=== PATIENT | female | born 1965 | race Caucasian/White ===

== ENCOUNTER 2021-03-10 12:18 | Emergency (ER) | payer OTHER, SELFPAY ==
[~2021-03-10] VITALS: Ht 157.5 cm; Wt 59.9 kg
--- NOTE | 2021-03-10 13:25 | NUR ---
placed in bed 7
[2021-03-10 13:26] VITALS: BP_SYST 80
--- NOTE | 2021-03-10 13:45 | NUR ---
Pt. came in with c/o dizziness, weakness, sorethroat and chestpain, states had covid earlier this month and has had ongoing throat and chest pain but dizziness has happened on and off for years and cause ussually is from low bloodpressure, BP at this time is 107/71 P 76, EKG done and labs started
--- NOTE | 2021-03-10 14:17 | NUR ---
WARREN Jessica at bedside examining patient.
[2021-03-10] MEDS ORDERED: NACL 0.9% 1,000 ML IV ONE (14:30)
[2021-03-10 14:43] LABS: CALCIUM 8.4 mg/dL (8.4-11.0); CREATININE 1.1 mg/dL (0.55-1.30); POTASSIUM 3.5 mmol/L (3.5-5.1)
[2021-03-10 14:51] LABS: ALBUMIN 2.5 g/dL (3.4-4.8); TOTAL BILIRUBIN 0.2 mg/dL (0.0-1.0)
[2021-03-10 14:52] LABS: BASOPHILS % (AUTO) 0.3 % (0.0-2.0); EOSINOPHILS % (AUTO) 0.5 % (0.0-4.0); HEMATOCRIT 28.1 % (36-48); HEMOGLOBIN 9.6 g/dL (12.0-16.0); LYMPHOCYTES # (AUTO) 2.3 K/uL (1.0-5.5); MEAN CORPUSCULAR HEMOGLOBIN 29 pg (27-31); MEAN CORPUSCULAR HGB CONC 34 % (32-36); MEAN CORPUSCULAR VOLUME 84 fL (79.0-98.0); MONOCYTES # (AUTO) 0.5 K/uL (0.0-1.0); MONOCYTES % (AUTO) 7.7 % (1.7-9.3); NEUTROPHILS # (AUTO) 3.8 K/uL (1.8-7.7); NEUTROPHILS % (AUTO) 57.5 % (40.0-70.0); PLATELET COUNT (AUTO) 479 K/uL (130-430); RED BLOOD CELL COUNT(AUTO) 3.36 MIL/uL (4.2-6.2); RED CELL DISTRIBUTION WIDTH 13.7 % (9.0-15.0); WHITE BLOOD COUNT (AUTO) 6.7 K/uL (4.8-10.8)
[2021-03-10] MEDS ORDERED: IBUP-1969 PO (16:39)
[2021-03-10] MEDS ORDERED: KETOROLAC TROMETHAMINE 30 MG VIAL IVP ONE (16:45)
[2021-03-10] MEDS ORDERED: IBUPROFEN 600 MG TABLET ONE (16:52)
--- NOTE | 2021-03-10 18:40 | NUR ---
Patient transported to radiology via gurney for CTA, accompanied by staff.
--- NOTE | 2021-03-10 18:58 | NUR ---
SL to left AC positional, 2nd line started to right AC per radiology request
--- NOTE | 2021-03-10 20:28 | NUR ---
Dr. Buchanan at bedside explaining test results and discharge instructions
--- NOTE | 2021-03-10 21:24 | NUR ---
Patient given written and verbal discharge instructions and verbalizes understanding. ER MD discussed with patient the results and treatment provided. Patient in stable condition. ID arm band removed. IV catheter removed intact and dressing applied, no active bleeding. Rx of Ibuprofen given. Patient educated on pain management and to follow up with PMD. Pain Scale 5/10. Opportunity for questions provided and answered. Medication side effect fact sheet provided.
[2021-03-10 21:29] VITALS: BP_SYST 131
== END 2021-03-10 21:29 | disposition home or self-care (01) ==
LOC: SED 12:18
DX: J18.9 Pneumonia, unspecified organism (principal); U09.9 Post COVID-19 condition, unspecified; M94.0 Chondrocostal junction syndrome [Tietze]; E04.9 Nontoxic goiter, unspecified; Z79.899 Other long term (current) drug therapy; Z20.822 Contact with and (suspected) exposure to COVID-19
CPT/HCPCS: 36415; 71045; 71275; 76376; 80053; 82533; 83880; 84443; 84484; 85025; 85379; 87426; 93005; 96361; 96374; 99285; J1885; J7030; Q9967